=== PATIENT | female | born 1990 | race Caucasian/White ===

== ENCOUNTER 2022-05-25 09:33 | Day surgery (SDC) | payer BC ==
[~2022-05-25] VITALS: Ht 160 cm; Wt 58.1 kg
[~2022-05-25 09:33] MED LIST: AMOXICILLIN500 MG PO; NO MEDS
[2022-05-25] MEDS ORDERED: PERCOCET 5/325M1 TAB PO (11:20)
[2022-05-25 13:18] VITALS: BP 117/86
== END 2022-05-25 12:10 | disposition home or self-care (01) | DRG 355 ==
LOC: ORM 09:33
PROVIDERS: ATTEND Surgery
PROC: 0WQF0ZZ Repair Abdominal Wall, Open Approach (ICD-10-PCS; principal; 2022-05-25)
DX: K42.9 Umbilical hernia without obstruction or gangrene (principal)
CPT/HCPCS: J0131; J1100

== ENCOUNTER 2022-11-04 09:03 | Day surgery (SDC) | payer BC ==
[~2022-11-04] VITALS: Ht 160 cm; Wt 58.1 kg
[~2022-11-04 09:03] MED LIST changes: +PERCOCET 5/325M1 TAB PO
[2022-11-04] MEDS ORDERED: PERCOCET 5/325M1 TAB PO (11:00)
[2022-11-04 13:30] VITALS: BP 129/81
== END 2022-11-04 12:41 | disposition home or self-care (01) | DRG 355 ==
LOC: ORM 09:03
PROVIDERS: ATTEND Surgery
PROC: 0WUF4JZ Supplement Abdominal Wall with Synthetic Substitute, Percutaneous Endoscopic Approach (ICD-10-PCS; principal; 2022-11-04)
DX: K43.2 Incisional hernia without obstruction or gangrene (principal)
CPT/HCPCS: J0131; J0690; J1100

== ENCOUNTER 2024-07-05 22:32 | Emergency (ER) | payer BC ==
[~2024-07-05] VITALS: Ht 160 cm; Wt 65.0 kg
[2024-07-05 22:37] VITALS: BP 141/96
[2024-07-05 22:45] VITALS: BP 128/74
[2024-07-05] MEDS ORDERED: ASPIRIN 81 MG/TAB PO ONE (22:45)
[2024-07-05] MEDS ORDERED: NITROGLYCERIN 2% OINT UD 1 GM/PAK TD ONE (22:45)
[2024-07-05 22:57] LABS: BASO% 0.8 % (0-3); EOS% 3.5 % (0-8); HEMATOCRIT 41.3 % (37.0-47.0); IMMATURE GRANULOCYTES 0.1 % (0.0-5.0); LYMPH% 32.3 % (15-41); MEAN CELL VOLUME 95.2 fL CALC (80.0-100.0); MEAN CORPUSCULAR HGB 32.3 pG CALC (26.0-32.0); MEAN CORPUSCULAR HGB CONC 33.9 g/dL CAL (32.0-36.0); MONO% 7.7 % (2-13); NEUT# 5.45 thou/uL (2.00-7.15); NEUT% 55.6 % (42-76); RED BLOOD COUNT 4.34 mill/uL (4.20-5.60); RED CELL DISTRI WIDTH 11.4 % (11.5-15.5)
[2024-07-05 23:00] VITALS: BP 115/79
[2024-07-05 23:07] VITALS: BP 123/81
[2024-07-05 23:31] VITALS: BP 107/73
[2024-07-05 23:41] LABS: ACT PARTIAL THROMBO TIME 26.1 SECONDS (20.0-32.5); ALKALINE PHOSPHATASE 57 u/l (38-126); ANION GAP 10 (6-22 (CALC)); BUN 11 mg/dL (7-17); BUN/CREATININE RATIO 12 (12-20 (CALC)); CARBON DIOXIDE 28 mmol/l (22-30); CHLORIDE 103 mmol/l (95-108); CREATININE 0.9 mg/dL (0.5-1.0); ESTIMATED GFR 85 ML/MIN (>=90 (CALC)); INTERNATIONAL NORMALIZED RATIO 0.9 RATIO (0.7-1.3); POTASSIUM 4.1 mmol/l (3.5-5.1); SGOT/AST 27 u/l (14-36); SODIUM 136 mmol/l (137-146)
[2024-07-05 23:42] LABS: PROTHROMBIN TIME 9.8 SECONDS (9.0-12.5)
[2024-07-05 23:43] LABS: D-DIMER < 0.19 mg/L (0.19-0.60)
[2024-07-05 23:45] LABS: ALBUMIN 4.1 g/dL (3.2-5.0); BILIRUBIN, TOTAL 0.9 mg/dL (0.02-1.3); TOTAL PROTEIN 6.9 g/dL (6.3-8.2)
[2024-07-06] VITALS: BP 103/69
[2024-07-06 00:30] VITALS: BP 106/70
[2024-07-06 00:48] LABS: URINE BILIRUBIN - DIPSTICK Negative (NEGATIVE); URINE BLOOD DIPSTICK Negative (NEGATIVE); URINE CLARITY Slightly Cloudy; URINE COLOR Yellow; URINE GLUCOSE - DIPSTICK Negative (NEGATIVE); URINE KETONE Negative (NEGATIVE); URINE LEUK ESTERASE Moderate (Negative); URINE NITRITE - DIPSTICK Negative (Negative); URINE PH 7.5 (4.5-8.0); URINE PROTEIN - DIPSTICK Negative (NEG-TRACE); URINE SPECIFIC GRAVITY 1.015; URINE UROBILINOGEN - DIPSTICK 0.2 E.U./dL (0.2)
[2024-07-06 00:51] LABS: URINE BACTERIA FEW hpf; URINE SQUAMOUS EPITHELIAL CELL MANY EPI/hpf (0-FEW)
[2024-07-06 01:00] VITALS: BP 111/81
[2024-07-06 01:14] VITALS: BP 111/81
== END 2024-07-06 01:14 | disposition left against medical advice (07) | DRG 313 ==
LOC: ED 22:32
PROVIDERS: Emergency Medicine
DX: R07.9 Chest pain, unspecified (principal); F14.10 Cocaine abuse, uncomplicated; Z53.29 Procedure and treatment not carried out because of patient's decision for other reasons